=== PATIENT | female | born 1950 | race Caucasian/White ===

== ENCOUNTER 2023-11-11 16:35 | Emergency (ER) | payer MEDICARE, OTHER ==
[~2023-11-11] VITALS: Ht 175.3 cm; Wt 138.6 kg
[2023-11-11] MEDS ORDERED: LASIX40 M1 PO (16:46)
[2023-11-11] MEDS ORDERED: ACTOS 15MG TAB15 MG PO (16:46)
[2023-11-11] MEDS ORDERED: CELEBREX 1100 MG/CAP PO (16:50)
[2023-11-11] MEDS ORDERED: MAGNESIUM400 M1 PO (16:51)
[2023-11-11] MEDS ORDERED: OZEMPIC2 MG/0.75 SQ ×2 (16:52)
[2023-11-11] MEDS ORDERED: ATORVASTATIN CA20 MG PO (16:53)
[2023-11-11] MEDS ORDERED: GLIPIZIDE ER10 M1 PO (16:54)
[2023-11-11] MEDS ORDERED: BUSPAR 30MG30 MG/TAB PO (16:54)
[2023-11-11] MEDS ORDERED: LEXAPRO20 M1 PO (16:55)
[2023-11-11] MEDS ORDERED: ISOSORBIDE30 MG PO (16:56)
[2023-11-11] MEDS ORDERED: VOLTAREN ARTHRI20 GM TP (16:56)
[2023-11-11] MEDS ORDERED: ZALEPLON10 MG PO (16:57)
[2023-11-11] MEDS ORDERED: COZAAR25 M1 PO (16:57)
[2023-11-11] MEDS ORDERED: MULTI-VITAMIN1 EACH PO (16:58)
[2023-11-11] MEDS ORDERED: FERROUS SULFATE65 MG PO (16:58)
[2023-11-11 17:36] LABS: BASO # 0.04 K/mm3 (0.02-0.10); EOS # 0.19 K/mm3 (0.04-0.40); EOS % 2.2 % (1.0-5.0); HEMATOCRIT 43.1 % (37.0-47.0); LYMPH# 1.83 K/mm3 (1.50-4.00); MEAN CELL VOLUME 88 fl (78-100); MEAN CORPUSCULAR HEMOGLOBIN 29 pg (27-31); MEAN CORPUSCULAR HGB CONC 33 g/dL (33-37); MEAN PLATELET VOLUME 10.3 fl (7.4-10.4); MONO # 0.64 K/mm3 (0.20-0.80); NEU # 6.07 K/mm3 (1.40-6.50); PLATELET COUNT 337 K/mm3 (130-400); RED BLOOD COUNT 4.91 M/mm3 (4.10-5.30); RED CELL DISTRIBUTION WIDTH 14.1 % (11.5-14.5); WHITE BLOOD COUNT 8.8 K/mm3 (4.8-10.8)
[2023-11-11 17:42] LABS: PH-URINE 5.5 (5.0 - 8.0); URINE APPEARANCE CLOUDY (CLEAR); URINE BILIRUBIN NEGATIVE (NEGATIVE); URINE BLOOD NEGATIVE (NEGATIVE); URINE COLOR YELLOW (YELLOW); URINE GLUCOSE NEGATIVE (NEGATIVE); URINE KETONE NEGATIVE (NEGATIVE); URINE LEUKOCYTE ESTERASE 1+ (NEGATIVE); URINE NITRATE NEGATIVE (NEGATIVE); URINE PROTEIN(semi-quant) NEGATIVE (NEGATIVE)
[2023-11-11 17:43] LABS: URINE MUCUS PRESENT (NOT PRESENT)
[2023-11-11 17:47] LABS: CALCIUM 9.6 mg/dL (8.3-10.5)
[2023-11-11 17:48] LABS: TOTAL PROTEIN 7.3 g/dL (6.2-8.1)
[2023-11-11 17:50] LABS: TOTAL BILIRUBIN 0.5 mg/dL (0.2-1.2)
[2023-11-11] MEDS ORDERED: CYCLOBENZAPRINE10 M1 PO (18:41)
[2023-11-11 19:19] VITALS: BP 137/65
== END 2023-11-11 19:19 | disposition home or self-care (01) ==
LOC: ED 16:35
PROVIDERS: Nurse Practitioner Family
DX: M62.838 Other muscle spasm (principal); R51.9 Headache, unspecified; R22.42 Localized swelling, mass and lump, left lower limb; Z79.899 Other long term (current) drug therapy